=== PATIENT | male | born 1995 | race African-American/Black ===

== ENCOUNTER 2018-12-15 16:43 | Emergency (ER) | payer SELFPAY ==
[~2018-12-15] VITALS: Ht 180.3 cm; Wt 81.6 kg
[~2018-12-15 16:43] MED LIST: NYST15CR2 TP; SULF1TAB24 PO
[2018-12-15 16:47] VITALS: BP 162/96
[2018-12-15] MEDS ORDERED: predniSONE 10 MG TABLET PO ONE (17:00)
[2018-12-15] MEDS ORDERED: ONDANSETRON ODT 4 MG TAB.RAPDIS. PO ONE (17:00)
[2018-12-15] MEDS ORDERED: IPRATRPIUM/ALBUTEROL 0.5/2.5MG 3 ML NEBU. NEB ONE (17:00)
[2018-12-15] MEDS ORDERED: ACETAMINOPHEN 500 MG TABLET PO ONE (17:00)
--- NOTE | 2018-12-15 17:07 | PHYS DOC ---
Past Medical History Past Medical History: No Pertinent History Past Surgical History: No Surgical History Alcohol Use: None Drug Use: None Adult General Chief Complaint Chief Complaint: ASTHMA HPI HPI Patient is a 23 year old male who presents with fever, sinus congestion, cough x 3 days. Patient began having increased shortness of breath and wheezing this morning. Patient's temperature is 102 and 93% on room air. Patient states he tried a nebulizer treatment and a inhaler didn't work. Patient states he took ibuprofen this morning. Patient has history of asthma. Review of Systems Review of Systems Constitutional: Denies fever or chills [] Eyes: Denies change in visual acuity, redness, or eye pain [] HENT: congestion or sore throat [] Respiratory: cough or shortness of breath [] Cardiovascular: Chest tightness GI: Denies abdominal pain, +nausea, denies vomiting, bloody stools or diarrhea [] : Denies dysuria or hematuria [] Musculoskeletal: back pain or joint pain [] Integument: Denies rash or skin lesions [] Neurologic: Denies headache, focal weakness or sensory changes [] All other systems were reviewed and found to be within normal limits, except as documented in this note. Current Medications Current Medications Current Medications Medications (Trade) Dose Ordered Sig/[facility] Start Time Stop Time Status Last Admin Dose Admin Acetaminophen (Tylenol) 1,000 mg 1X ONCE 12/15/18 17:00 12/15/18 17:01 DC 12/15/18 17:07 1,000 MG Albuterol/ Ipratropium (Duoneb) 3 ml 1X ONCE 12/15/18 17:00 12/15/18 17:01 DC 12/15/18 16:56 3 ML Ondansetron HCl (Zofran Odt) 4 mg 1X ONCE 12/15/18 17:00 12/15/18 17:01 DC 12/15/18 17:07 4 MG Prednisone (Prednisone) 50 mg 1X ONCE 12/15/18 17:00 12/15/18 17:01 DC 12/15/18 17:07 50 MG Allergies Allergies Allergies Coded Allergies Type Severity Reaction Last Updated Verified No Known Drug Allergies 04/14/16 No Physical Exam Physical Exam Constitutional: Well developed, well nourished, no acute distress, non-toxic appearance. [] HENT: Normocephalic, atraumatic, bilateral external ears normal, oropharynx moist, no oral exudates, nose normal. Throat reddened without swelling or exudates. [] Eyes: PERRLA, EOMI, conjunctiva normal, no discharge. [] Cardiovascular:Heart rate regular rhythm, no murmur [] Lungs & Thorax: Bilateral breath sounds inspiratory, expiratory wheezes to auscultation [] Abdomen: Bowel sounds normal, soft, no tenderness, no masses, no pulsatile masses. [] Skin: Warm, dry, no erythema, no rash. [] Back: No tenderness, no CVA tenderness. [] Neurologic: Alert and oriented X 3, normal motor function, normal sensory function, no focal deficits noted. [] Psychologic: Affect normal, judgement normal, mood normal. [] Current Patient Data Vital Signs Vital Signs Date Time Temp Pulse Resp B/P (MAP) Pulse Ox O2 Delivery O2 Flow Rate FiO2 12/15/18 16:47 102.0 111 20 162/96 (118) 93 Room Air 102.0 EKG EKG [] Radiology/Procedures Radiology/Procedures [] Impressions: [facility] [address] [place] [address] IMAGING REPORT Signed PATIENT: JOURDAN GRANADOS ACCOUNT: [id number] : 1995 LOCATION: ER AGE: 23 SEX: M EXAM STATUS: REG ER ORD. PHYSICIAN: ROB ANDUJAR APRN REASON: asthma, soa PROCEDURE: CHEST PA & LATERAL CHEST PA LATERAL INDICATION: Dyspnea, asthma. COMPARISON STUDY: None. FINDINGS: Lungs: Normal lung volume. No pulmonary mass or consolidation. The tracheobronchial tree and hilar structures are normal. Pleura: No pleural effusion or pneumothorax. Heart and Mediastinum: The cardiomediastinal silhouette is normal. The great vessels of the thorax are normal. Bones and Soft Tissues: The bones and soft tissues are within normal limits. IMPRESSION: No acute cardiopulmonary process. Electronically signed by: Manuel Moss MD (12/15/2018 5:27 PM) [facility] DICTATED and SIGNED BY: MANUEL MOSS MD DATE: 12/15/18 3150 Course & Med Decision Making Course & Med Decision Making Patient is a 23 year old male who presents with fever, sinus congestion, cough x 3 days. Patient began having increased shortness of breath and wheezing this morning. Patient's temperature is 102 and 93% on room air. Patient states he tried a nebulizer treatment and a inhaler didn't work. Patient states he took ibuprofen this morning. Patient has history of asthma. Patient states he took one of his mother's amoxicillin pills on an empty stomach and now he is nauseated. Patient states he hasn't vomited but is been dry heaving which is given him back pain. Patient has no other pain. Patient has chest tightness he rates 8 out of 10. Patient denies syncope, dizziness, vomiting, numbness or tingling, visual changes, headache. Patient states he also has throat pain that started today. Patient denies any abdominal pain, diarrhea, ear pain. Speaks in full clear sentences. Skin pink warm and dry. Mucous membranes are moist. Ambulatory with steady gait. Lungs have inspiratory expiratory wheezes throughout all lobes. PERRLA. Alert and oriented. Throat is reddened without swelling or exudates. Bilateral tympanic membranes are pearly white. No CVA tenderness. Patient is given a breathing treatment, Tylenol, Zofran, prednisone upon arrival. Chest x-ray shows no acute findings. Patient states he is feeling better breathing carreon but he is still having epigastric pain that he thinks is from the vomiting that he's done today. Abdomen is not tender and is soft. There is no right lower abdominal tenderness. Patient's last bowel movement was yesterday and he states it was normal for him. Lungs are clear to auscultation all lobes. Heart rate 102. Patient is given crackers to see if he keeps them down. Strep negative. Patient kept medications and crackers down without vomiting. Patient states he is feeling much better and his stomach no longer hurts. Patient states he is no longer nauseated. Patient's temperature is down to 100.1. Patient is told that his abdominal pain comes back and is hurts worse or moves down to his right lower side he needs to return. Patient is also told he cannot keep down his medications needs to return to the hospital. Patient is stable and in no dist ress. Dragon Disclaimer Dragon Disclaimer This electronic medical record was generated, in whole or in part, using a voice recognition dictation system. Departure Departure Impression: Primary Impression: Asthma Additional Impressions: Nasal congestion Cough Vomiting Disposition: 01 HOME, SELF-CARE Condition: STABLE Referrals: NO PCP (PCP) Patient Instructions: Asthma Prevention-Brief, Asthma, Adult, Nausea and Vomi ting Additional Instructions: Take medications as prescribed. Follow-up here primary care doctor. Continue taking Tylenol or ibuprofen to help keep your fevers down. Take medications with food. Scripts Ondansetron (ONDANSETRON ODT) 4 Mg Tab.rapdis 1 TAB PO PRN Q6-8HRS, #16 TAB Prov: JEFFERSON ANDUJARSAGAR Seg[place] 12/15/18 Albuterol Sulfate (Proair Hfa) 8.5 Gm Hfa.aer.ad 1 PUFF INH PRN Q6HRS PRN for SHORTNESS OF BREATH, #1 INHALER Prov: CONROB 12/15/18 Methylprednisolone (MEDROL) 4 Mg Tab.ds.pk 1 PKG PO UD, #1 PKG Prov: CONROB COFFEE GROWER 12/15/18 Azithromycin (AZITHROMYCIN TABLET) 250 Mg Tablet 1 PKG PO UD, #6 TAB Prov: JEFFERSON ANDUJARSAGAR Seg[place] 12/15/18 Problem Qualifiers Primary Impression: Asthma Asthma severity: mild Asthma persistence: intermittent Asthma complication type: uncomplicated Qualified Codes: J45.20 - Mild intermittent asthma, uncomplicated Additional Impressions: Vomiting Vomiting type: unspecified Vomiting Intractability: non-intractable Nausea presence: with nausea Qualified Codes: R11.2 - Nausea with vomiting, unspecified OSKARORB Dec 15, 2018 17:07
--- NOTE | 2018-12-15 17:31 | RAD ---
CHEST PA LATERAL INDICATION: Dyspnea, asthma. COMPARISON STUDY: None. FINDINGS: Lungs: Normal lung volume. No pulmonary mass or consolidation. The tracheobronchial tree and hilar structures are normal. Pleura: No pleural effusion or pneumothorax. Heart and Mediastinum: The cardiomediastinal silhouette is normal. The great vessels of the thorax are normal. Bones and Soft Tissues: The bones and soft tissues are within normal limits. IMPRESSION: No acute cardiopulmonary process. Electronically signed by: Piter Moss MD (12/15/2018 5:27 PM) [facility]
[2018-12-15] MEDS ORDERED: AZIT250T6 PO (18:46)
[2018-12-15] MEDS ORDERED: METH4TAB2 PO (18:46)
[2018-12-15] MEDS ORDERED: ONDA4TAB12 PO (18:46)
[2018-12-15] MEDS ORDERED: ALBU2.5V8 INH (18:46)
== END 2018-12-15 19:00 | disposition home or self-care (01) ==
LOC: ER 16:43
DX: J45.20 Mild intermittent asthma, uncomplicated (principal); R11.2 Nausea with vomiting, unspecified
CPT/HCPCS: 71046; 87070; 87880; 99285; J7512; J7620; Q0162